=== PATIENT | female | born 1990 | race Hispanic/Latino ===

== ENCOUNTER 2018-04-20 02:36 | Emergency (ER) | payer BC ==
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
[2018-04-20 02:56] VITALS: RESP 18; TEMP 98.2; BMI 26.5
[2018-04-20] MEDS ORDERED: Sodium Chloride 0.9% 1,000 ML IV SCH (03:00)
[2018-04-20 04:01] LABS: ACETAMINOPHEN < 10.0 ug/ml (10.0-20.0); SALICYLATE < 1 mg/dL (2.0-20.0)
[2018-04-20 05:04] LABS: BARBITURATES, UR NEGATIVE (NEGATIVE); BENZODIAZEPINES, UR NEGATIVE (NEGATIVE); OPIATES, UR NEGATIVE (NEGATIVE); PHENCYCLIDINE, UR NEGATIVE (NEGATIVE)
[2018-04-20 07:22] VITALS: BP 115/85; PULSE 95; O2SAT 100
== END 2018-04-20 06:30 | disposition home or self-care (01) ==
LOC: ED 02:36
DX: F19.99 Other psychoactive substance use, unspecified with unspecified psychoactive substance-induced disorder (principal)
CPT/HCPCS: 82009; 84600; 99284; G0480; J7030